=== PATIENT | male | born 1965 | race African-American/Black ===

== ENCOUNTER 2017-03-05 03:36 | Inpatient (IN) | payer OTHER ==
[~2017-03-05] VITALS: Ht 172.7 cm; Wt 97.1 kg
[~2017-03-05 03:36] MED LIST: ATORVASTATIN CA10 M1 PO; BASAGLAR K100 UNIT/1 SC; GABAPENTIN300 M2 PO; LOSARTAN POTASS50 M1 PO; METOPROLOL TART25 M1 PO
--- NOTE | 2017-03-05 10:44 | Admission Core Measures ---
Admission Meds I reviewed the following Meds: Current Medications Sig/Gabrielle Start time Last Medication Dose Stop Time Status Admin Acetaminophen 975 MG ONCE 03/05 0000 AC (Tylenol) 03/05 2359 Atorvastatin Calcium 10 MG DAILY 03/05 1000 AC (Lipitor) Cefazolin Sodium 2,000 MG ONCE 03/05 NR (Kefzol-Ancef Inj) 03/05 2359 Gabapentin 300 MG DAILY 03/05 1000 AC (Neurontin) Losartan Potassium 50 MG AT BEDTIME 03/05 2200 AC (Cozaar) Metoprolol Tartrate 25 MG BID 03/05 1000 AC (Lopressor) Oxycodone HCl 10 MG ONCE 03/05 AC (Roxicodone) 03/05 2359 Acute Coronary Syndrome Inclusion Criteria ACS Diagnosis No Inpatient Core Measures LDL Reminder: If No, please order W/I first 24hr of stay Congestive Heart Failure Inclusion Criteria CHF Diagnosis No Cerebrovascular accident Inclusion Criteria CVA/TIA Diagnosis No Inpatient Core Measures Bedside Swallow Eval Reminder: If BSE failed, place ST order Antithrombotic Reminder: Order Antithrombotic Medication by end of day 2 Antithrombotic Reminder: Document Reason Antithrombotic Not ordered by end of day 2 AFIB/Flutter Reminder: If Present, add to problem list AFIB/Flutter Reminder: Order Anticoag Medication for pts with AFIB/Flutter Atherosclerosis Reminder: If Present, add to problem list LDL Reminder: If No, please order W/I first 24hr of stay PT Order Reminder: If No, please order Venous thromboembolism Inpatient Core Measures VTE Risk Factors: Age > 40, Surgery No [facility] VTE prophylaxis d/t No contraindications No VTE Pharm Prophylaxis d/t No contraindications Inclusion Criteria - Per Current guidelines, there needs to be overlap - treatment for the first 5 days of Warfarin therapy. - Parenteral Anticoagulation (IV or SC) needs to be - given along with Warfarin therapy. VTE Diagnosis No VTE Type NONE VTE Confirmed by (Test) NONE Problem List As ranked by this Provider includes Assessment & Plan 1. Unilateral primary osteoarthritis, right hip HOME MEDS Home Med List Atorvastatin Calcium 10 MG TABLET 1 TAB PO DAILY CHOLESTEROL (Reported) Gabapentin 300 MG CAPSULE 1 CAP PO DAILY PAIN (Reported) Insulin Glargine,Hum.rec.anlog (Basaglar Kwikpen U-100) 100 UNIT/ML (3 ML) INSULN.PEN 10 UNITS SC DAILY DM II (Reported) Losartan Potassium 50 MG TABLET 1 TAB PO NIGHTLY HTN (Reported) Metoprolol Tartrate 25 MG TABLET 1 TAB PO BID HTN (Reported)
[2017-03-05] MEDS ORDERED: MS CONTIN30 M1 PO (10:46)
[2017-03-05] MEDS ORDERED: ASPIRIN EC325 M2 PO (10:46)
[2017-03-05] MEDS ORDERED: MIRALAX17 G1 PO (10:46)
[2017-03-05] MEDS ORDERED: DILAUDID2 M1 PO (10:46)
[2017-03-05] MEDS ORDERED: COLACE100 M1 PO (10:46)
--- NOTE | 2017-03-05 10:50 | Patient Discharge Instructions ---
Discharge Instructions General Discharge Information You were seen/treated for: Right hip pain related to unilateral primary osteoarthritis You had these procedures: Right total hip replacement Watch for these problems: Increasing pain despite the use of pain medication Increasing redness, warmth or swelling Drainage of any type from incision Inability to bear weight on operative leg Persistent nausea and vomiting Fever greater than 101.5 degrees Do not soak the wound: Yes No bath, but you may shower: Yes Other wound care: Please keep wound clean and dry. No ointments or lotions of any type on or near incision at any time. No exceptions. Your dressing will be changed by your nurse on the second day after your surgery. Daily dry dressing changes are recommended each day thereafter. Do not soak your wound in a bath at any time until otherwise indicated by your surgeon. You may shower, please dry wound immediately after shower with a clean towel. Special Instructions: Aspirin: You are taking this medication to help prevent blood clot formation. Please take with food to protect your stomach lining. Please take as directed. Constipation: Pain medication can cause constipation. Dr. Bhatti has recommended that you take Colace and miralax each day. You may discontinue this medication if you develop loose stool or diarrhea. If you wish to continue this medication, it is available over the counter. If you are unable to move your bowels after several days, if you are unable to pass gas and are developing bloating, nausea, or vomiting as a result, please contact your doctor. Diet Continue normal diet: Yes Recommended Diet: Heart Healthy Activity Full Activity/No Limits: No Activity Self Limited: Yes Pounds, do NOT lift more than: 10 Activity Limited to: Weight bear as tolerated Acute Coronary Syndrome Inclusion Criteria At DC or during hospital stay patient has or had the following: ACS DIAGNOSIS No Discharge Core Measures Meds if any: Prescribed or Continued at Discharge Meds if any: NOT Prescribed or Continued at Discharge Congestive Heart Failure Inclusion Criteria At DC or during hospital stay patient has or had the following: CHF DIAGNOSIS No Discharge Core Measures Meds if any: Prescribed or Continued at Discharge Meds if any: NOT Prescribed or Continued at Discharge Cerebrovascular accident Inclusion Criteria At DC or during hospital stay patient has or had the following: CVA/TIA Diagnosis No Discharge Core Measures Meds if any: Prescribed or Continued at Discharge Meds if any: NOT Prescribed or Continued at Discharge Venous thromboembolism Inclusion Criteria VTE Diagnosis No VTE Type NONE VTE Confirmed by (Test) NONE Discharge Core Measures - Per Current guidelines, there needs to be overlap - treatment for the first 5 days of Warfarin therapy. - If discharged on Warfarin prior to 5 days of - overlap therapy, the patient will need to be - assessed for post discharge needs including - *Post discharge parental anticoagulation - *Warfarin and/or parental anticoagulation education - *Follow up date to check INR post discharge At least 5 days overlap therapy as Inpatient No Meds if any: Prescribed or Continued at Discharge Note: Overlap Therapy is Warfarin and Anticoagulant Meds if any: NOT Prescribed or Continued at Discharge
--- NOTE | 2017-03-05 10:52 | Surgical Discharge Summary ---
Visit Information Visit Dates Admission Date: 03/05/17 Discharge Date: 03/05/17 History of Present Illness Chief Complaint: Right hip pain related to unilateral primary osteoarthritis Surgical History Pertinent Surgical History: non-contributory Psychosocial History What is Your Primary Language? Maori Review of Systems: See H&P Hospital Course Course Attending Physician: AMANDA AYALA MD Primary Care Physician: SVEN DHILLON MD Hospital Course: Patient was admitted to the hospital for an elective total joint replacement. The procedure was tolerated well and patient was transferred to a general surgical floor. Diet was advanced and tolerated, and the patient voided spontaneously. The patient was evaluated and treated by physical therapy. At the time of hospital discharge, the vital signs were stable, neurovascular status was intact, and pain was controlled with the use of oral pain medications. Allergies: Coded Allergies: No Known Allergies (02/26/17) Disposition Summary Disposition Principal Diagnosis: Right hip unilateral primary osteoarthritis Additional Diagnosis: None Discharge Disposition: home health services Discharge Instructions General Discharge Information Code Status: Full Code Patient's Diet: Heart healthy, ada, advance as tolerated Patient's Activity: WBAT Follow-Up Instructions/Appts: Follow up with Dr. Ayala in 6 weeks from date of surgery. Please call his office to arrange and/or confirm this appointment. Medications at Discharge Discharge Medications: Continue taking these medications: Insulin Glargine,Hum.rec.anlog (Basaglar Kwikpen U-100) 100 UNIT/ML (3 ML) INSULN.PEN 10 Units Inject into fatty tissue DAILY Gabapentin (Gabapentin) 300 MG CAPSULE 1 Capsule ORAL DAILY Atorvastatin Calcium (Atorvastatin Calcium) 10 MG TABLET 1 Tablet ORAL DAILY Metoprolol Tartrate (Metoprolol Tartrate) 25 MG TABLET 1 Tablet ORAL TWICE DAILY Losartan Potassium (Losartan Potassium) 50 MG TABLET 1 Tablet ORAL NIGHTLY Start taking the following new medications: Aspirin (Ecotrin*) 325 MG TABLET.DR 1 Tablet ORAL TWICE DAILY Qty = 60 No Refills Docusate Sodium (Colace) 100 MG CAPSULE 1 Capsule ORAL TWICE DAILY Qty = 14 No Refills Instructions: DISCONTINUE USE IF YOU DEVELOP LOOSE STOOL OR DIARRHEA Polyethylene Glycol 3350 (Miralax) 17 GRAM POWD.PACK 1 Packet ORAL DAILY Qty = 7 No Refills Instructions: dissolve in water, DISCONTINUE USE IF YOU DEVELOP LOOSE STOOL OR DIARRHEA Hydromorphone HCl (Dilaudid) 2 MG TABLET 1-2 Tablet ORAL EVERY 4-6 HOURS NEEDED as needed for PAIN Qty = 36 No Refills Morphine Sulfate (Ms Contin) 30 MG TABLET.ER 1 Tablet ORAL TWICE DAILY Qty = 6 No Refills
--- NOTE | 2017-03-05 11:34 | RADIOLOGY REPORT ---
EXAMINATION: XR HIP, RIGHT CLINICAL INFORMATION: Status post right hip replacement. COMPARISON: None TECHNIQUE: Two views of the right hip. FINDINGS: There has been a total right hip replacement. The prosthesis is normally aligned. No dislocation. Along the posterior margin of the proximal femoral cortex there appears to be a slight step-off on the lateral view. There is some air in the soft tissues compatible with immediately postoperative appearance. IMPRESSION: There is a cortical step-off along the posterior margin of the proximal femur on the lateral view. A periprosthetic fracture is not excluded based on these images. Correlation with CT is recommended. Findings discussed with RITESH Pereira at 11:20 AM on 03/05/2017.
--- NOTE | 2017-03-05 12:18 | CT SCAN REPORT ---
EXAMINATION: CT LOWER EXTREMITY WITHOUT CONTRAST, RIGHT CLINICAL INFORMATION: Postoperative evaluation of right hip. Possible periprosthetic fracture. Questionable fracture on of the postoperative radiographs. COMPARISON: Radiographs of the right hip from 03/05/2017. TECHNIQUE: Noncontrast multidetector CT imaging examination of the right hip was performed using 0.625 mm collimation. DLP: 1953 mGy-cm FINDINGS: The patient is status post right total hip arthroplasty. The acetabular cup exhibits normal anteversion and lateral version. The femoral head prosthesis is well centered within the acetabular cup. There is a small, incomplete fracture in the posteroinferior quadrilateral plate (images [id number], series 2). Also noted is minimal cortical fragmentation of the anteroinferior acetabulum. No significant acetabular defects are identified A small cortical defect is seen within the superior aspect of the greater trochanter, probably related to the recent standard surgical procedure (images [id number], series 2). In the area of concern on the recent radiographs, there is no evidence of periprosthetic fracture. The intertrochanteric and subtrochanteric femoral cortex is normal. There is no evidence of femoral component subsidence or femoral periprosthetic fracture. There are expected soft tissue changes around the hip with scattered foci of soft tissue gas and subcutaneous tissues tissue edema. No unexpected fluid collection or hematoma. IMPRESSION: 1. Prosthetic components of the total hip arthroplasty are in satisfactory position. 2. No evidence of periprosthetic femoral fracture in the area of concern on the recent radiographs. 3. A small, incomplete fracture is seen within the posteroinferior quadrilateral plate (images [id number], series 2).
--- NOTE | 2017-03-05 13:27 | NUR ---
NURSING NOTE: PATIENT ARRIVED TO FLOOR VIA STRETCHER WITH DISTRIBUTION FROM PACU. PATIENT A/OX3, + CMS NOTED. VSS. PAIN CONTROLLED AT THIS TIME. SLIGHT NUMBNESS TO PATIENT'S BOTTOM NOTED PER PATIENT. HIP KIT AND INFO PACKET GIVEN TO PATIENT. CALL VALDEZ IN REACH AND EXPLAINED. IV FLUIDS RUNNING PER ORDER. BELONGINGS ARRIVED TO ROOM WITH PATIENT. WILL CONTINUE TO MONITOR. PT TO EVAL PATIENT.
[2017-03-05 13:59] VITALS: BP 140/82
--- NOTE | 2017-03-05 15:21 | PN- Orthopedic ---
Subjective Subjective: POST-OP NOTE: No complaints. Pain controlled. Cleared by PT for home. Tolerating food. No nausea. Voided a large amount of urine post-op. No dizziness. No shortness of breath. No chest pains. Objective Vital Signs and I&Os Vital Signs Date Time Temp Pulse Resp B/P B/P Pulse O2 O2 Flow FiO2 Mean Ox Delivery Rate 03/05 1359 97.6 76 18 140/82 96 Room Air Intake & Output 03/05 1600 03/05 0800 03/05 0000 03/04 1600 03/04 0800 03/04 0000 Intake Total 375 Output Total 200 Balance 175 Intake, IV 75 Intake, Oral 300 Output, Urine 200 Patient 214 lb Weight Weight Reported by Patient Measurement Method Physical Exam: General - alert & oriented x 3. comfortable. no acute distress. Lungs - clear bilaterally. no w/r/r. Cardiac - s1s2. reg. Abdomen - soft. nontender. Extremities - warm bilaterally. no c/c/e. right hip dressing c/d/i. no hematoma. no drains. nvi. calves soft and nontender b/l. Current Medications: Current Medications Sig/Gabrielle Start time Last Medication Dose Route Stop Time Status Admin Acetaminophen 1,000 MG Q6P PRN 03/05 1330 AC IV 03/06 1321 Acetaminophen 650 MG Q4P PRN 03/05 1330 AC PO Acetaminophen 0 .STK-MED ONE 03/05 0731 DC PO Acetaminophen 975 MG ONCE 03/05 0000 DC PO 03/05 2359 Aspirin 325 MG BID 03/05 2200 AC PO Atorvastatin Calcium 10 MG DAILY 03/06 1000 AC PO Atorvastatin Calcium 10 MG DAILY 03/05 1000 DC PO Cefazolin Sodium 2 GM IQ8 03/05 1600 AC N/A 1 UNIT IV 03/06 0029 Cefazolin Sodium 2,000 MG ONCE 03/05 0000 DC IV 03/05 2359 Docusate Sodium 100 MG BID 03/05 2200 AC PO Gabapentin 300 MG DAILY 03/06 1000 AC PO Gabapentin 300 MG DAILY 03/05 1000 DC PO Hydromorphone HCl 2 MG Q4P PRN 03/05 1330 AC PO Hydromorphone HCl 4 MG Q4P PRN 03/05 1330 AC 03/05 PO 1448 Insulin Human Regular 0 TIDAC/HS 03/05 1200 AC 03/05 SC 1448 Ketorolac 30 MG Q8P PRN 03/05 1330 AC Tromethamine IV 03/08 1321 Losartan Potassium 50 MG AT BEDTIME 03/05 2200 DC PO Losartan Potassium 50 MG AT BEDTIME 03/05 2200 AC PO Metoprolol Tartrate 25 MG BID 03/05 2200 AC PO Metoprolol Tartrate 25 MG BID 03/05 1000 DC PO Morphine Sulfate 2 MG Q2P PRN 03/05 1330 AC IV Omeprazole 40 MG DAILY AC 03/06 0700 AC PO Ondansetron HCl 4 MG Q6P PRN 03/05 1330 AC IV Oxycodone HCl 0 .STK-MED ONE 03/05 0732 DC PO Oxycodone HCl 10 MG ONCE 03/05 0000 DC PO 03/05 2359 Polyethylene Glycol 17 GM DAILY 03/06 1000 AC PO Promethazine HCl 12.5 MG Q6P PRN 03/05 1330 AC IV 03/12 1044 Sodium Chloride 1,000 ML .[id number] 03/05 1330 AC 03/05 IV 1448 Assessment/Plan Assessment/Plan This 51 year old male with hx htn, hld, iddm, is POD#0 s/p right total hip replacement for unilateral primary osteoarthritis pain controlled tolerating diet cleared for home by PT voided without difficulty asa bid - dvt ppx leon-operative ancef post-operative imaging / CT scan reviewed personally by and "negative " d/c home with services will d/w Core Measures/Miscellaneous Venous Thromboembolism VTE Risk Factors: Age > 40, Surgery VTE Contraindications: No Contraindications VTE Diagnosis: No VTE Type: NONE VTE Confirmed by (Test): NONE Beta Daniel Is Beta Daniel a Home Med? Yes If Yes, Was This Ordered Today? Yes Antibiotics Is Patient on Antibiotics? Yes If Yes: prophylaxis
--- NOTE | 2017-03-05 16:31 | NUR ---
NURSING NOTE: PATIENT A/OX3, LEFT FLOOR VIA W/C WITH DISTRIBUTION TO [facility] FOR HOME WITH HEALTH SERVICES DISCHARGE. PATIENT PAIN CONTROLLED AT THIS TIME. MUNIR STOCKINGS IN PLACE, HIP KIT GIVEN TO PATIENT AND SPOUSE. ALL DISCHARGE INSTRUCTIONS DISCUSSED WITH PATIENT. PRESCRIPTIONS TO BE PICKED UP IN PHARMACY, PATIENT AWARE. IV DISCONTINUED.
--- NOTE | 2017-03-05 19:05 | Operative Report ---
Operative/Inv Procedure Report Surgery Date: 03/05/17 Name of Procedure: Right total hip replacement Pre-Operative Diagnosis: Primary right hip DJD Post-Operative Diagnosis: Same Estimated Blood Loss: 250 Surgeon/Floor Polisher: LUCY MAYS,AMANDA Mireles Anesthesia: block Operative/Procedure Note Note: Description of Procedure: The patient was taken to the operating room and positively identified. After induction of spinal anesthesia and administration of appropriate pre-operative antibiotics, the patient was positioned supine on the operating room table and all bony prominences were well padded. After performing a surgical timeout, the right lower extremity was prepped and draped in the usual sterile fashion. A direct anterior approach was made to the right hip. The incision was carried sharply through superficial soft tissues to the level of the fascia. Meticulous hemostasis was maintained with Bovie electocautery. The fascia over the tensor fascia frida muscle was opened sharply and the interval between the TFL and the sartorius was entered bluntly taking care to stay lateral to the lateral femoral cutaneous nerve. Retractors were placed around the femoral neck and the pericapsular fat was identified. The ascending branches of the lateral femoral circumflex vessels were identified and carefully coagulated. The pericapsular fat and anterior capsule were then resected. A napkin ring osteotomy was performed and the femoral head was removed without difficulty. Attention was then turned to the acetabulum. After appropriate placement of retractors, the acetabulum was exposed. Soft tissue was cleaned from the acetabular margin and notch. Overhanging osteophytes were removed and the teardrop was exposed. The acetabulum was then sequentially reamed to accept a 58 mm Reynaldo Tritanium hemispherical solid back shell. This was impacted into place in the appropriate position and fitted with a 36 mm Trident X3 zero degree polyethylene insert. Attention was then turned to the femur. After performing the appropriate ligament releases, the proximal femur was exposed. It was then sequentially broached to accept a size 7 Timewell secure fit advanced 127 stem. This was trialed for leg length and stability. The trial component was removed and the final component was impacted into place. The trunnion was carefully cleaned and fit with a 36 mm, +0 Biolox delta ceramic femoral head. The hip was reduced and put through a full range of motion and found to be stable. The articular space was then irrigated with sterile saline. The periarticular soft tissues were infilitrated with Marcaine. The fascial layer was closed with interrupted #1 vicryl suture and the skin was re-approximated with interrupted 2 -0 vicryl. The skin was closed with a running 3-0 V-Lock suture. Steri-strips and a sterile dressing were applied. The patient was awakened and taken to the recovery room in satisfactory condition.
== END 2017-03-05 16:28 | disposition home health service (06) | DRG 470 ==
LOC: SDA 03:36 → ENRESERV 11:37 → ENTRNSPT 12:53 → EDTRNSPTSTS 12:56 → EDTRNSPT 12:56 → CMPTRNSPT 13:13 → 2NB 13:15
PROVIDERS: ADMIT Orthopaedic Surgery
PROC: 0SR904A Replacement of Right Hip Joint with Ceramic on Polyethylene Synthetic Substitute, Uncemented, Open Approach (ICD-10-PCS; principal; 2017-03-05)
DX: M16.11 Unilateral primary osteoarthritis, right hip (principal); I10 Essential (primary) hypertension; M25.751 Osteophyte, right hip; E78.5 Hyperlipidemia, unspecified; E11.9 Type 2 diabetes mellitus without complications
CPT/HCPCS: 2NBSP; 73502-RT; 97110-GO; 97116-GO; 97161-GP; J0131; J0690; J0735; J1100; J1815; J1885; J2550